=== PATIENT | female | born 1990 | race Caucasian/White ===

== ENCOUNTER 2017-03-21 10:50 | Emergency (ER) | payer BC ==
--- NOTE | 2017-03-21 11:22 | EDM.PDOC ---
ED HPI GENERAL MEDICAL PROBLEM - General Chief Complaint: Gastrointestinal Problem Stated Complaint: VOMITING/DIARRHEA Time Seen by Provider: 03/21/17 11:22 Source of Information: Reports: Patient - History of Present Illness INITIAL COMMENTS - FREE TEXT/NARRATIVE: Patient is here for evaluation for cough/myalgias and chills that started approximately 10 PM last night. She states that initially when she she woke up this morning she felt okay, so she's got up and moving around these returned. She is now also vomiting and having diarrhea. She has had several episodes of vomiting and diarrhea this morning. She states that she is not tolerating well water all the greatest and feels nauseated now. She feels she has a fever but hasn't checked. Patient did get her influenza vaccine prior to moving here from [place] approximately 4 months ago. She denies any chronic medical conditions, did have hypertension and anemia while . She is not on any medications daily. 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: none- has been vomiting Generalized Pain Score (Numeric/FACES): 6 - Related Data Allergies Allergy/AdvReac Type Severity Reaction Status Date / Time No Known Allergies Allergy Verified 03/21/17 11:10 Home Meds: Home Meds Ondansetron [Zofran ODT] 4 mg PO Q6H PRN #10 tab.dis 03/21/17 [Rx] Past Medical History - Past Surgical History Female Surgical History: Reports: Section, Other (See Below) Other Female Surgeries/Procedures: pre-eclampsia Social & Family History - Tobacco Use Smoking Status *Q: Former Smoker Used Tobacco, but Quit: Yes Month Tobacco Last Used: 4 month - Caffeine Use Caffeine Use: Reports: Coffee, Energy Drinks, Tea - Recreational Drug Use Recreational Drug Use: No ED ROS GENERAL - Review of Systems Review Of Systems: See Below Constitutional: Reports: Fever, Chills, Malaise, Weakness, Fatigue, Decreased Appetite HEENT: Denies: Eye Discharge, Sinus Problem Respiratory: Reports: Cough. Denies: Shortness of Breath, Wheezing, Sputum, Hemoptysis Cardiovascular: Reports: No Symptoms Endocrine: Reports: No Symptoms GI/Abdominal: Reports: Abdominal Pain (Diffuse, mild), Diarrhea, Decreased Appetite, Nausea, Vomiting. Denies: Black Stool, Bloody Stool : Reports: No Symptoms Musculoskeletal: Reports: Back Pain, Muscle Pain, Muscle Stiffness Skin: Reports: No Symptoms Neurological: Reports: No Symptoms Psychiatric: Reports: No Symptoms ED EXAM, GI/ABD - Physical Exam Exam: See Below Exam Limited By: No Limitations General Appearance: Alert, WD/WN, Other (Patient is ill in appearance) Ears: Normal External Exam, Normal Canal, Normal TMs Nose: Normal Inspection, Normal Mucosa, No Blood Throat/Mouth: Normal Inspection, Normal Oropharynx Head: Atraumatic, Normocephalic Neck: Normal Inspection, Supple, Non-Tender, Full Range of Motion Respiratory/Chest: No Respiratory Distress, Lungs Clear, Normal Breath Sounds, Chest Non-Tender Cardiovascular: Normal Peripheral Pulses, Regular Rate, Rhythm, No Murmur, No Rub GI/Abdominal Exam: Normal Bowel Sounds, Soft, Tender (Mild, diffuse) Neurological: Alert, Oriented Psychiatric: Normal Affect, Normal Mood Skin Exam: Warm, Dry, Intact Course - Vital Signs Last Recorded V/S: Last Vital Signs Temp 101.8 F H 03/21/17 11:04 Pulse 111 H 03/21/17 11:04 Resp 20 03/21/17 11:04 BP 113/76 03/21/17 11:04 Pulse Ox 96 03/21/17 11:04 - Orders/Labs/Meds Orders: Active Orders 24 hr Category Date Time Status UA W/MICROSCOPIC [URIN] Stat Lab 03/21/17 11:30 Uncollected Labs: Laboratory Tests 03/21/17 03/21/17 Range/Units 11:49 11:49 WBC 7.27 (3.98-10.04) K/mm3 RBC 4.49 (3.98-5.22) M/mm3 Hgb 12.7 (11.2-15.7) gm/L Hct 38.1 (34.1-44.9) % MCV 84.9 (79.4-94.8) fl MCH 28.3 (25.6-32.2) pg MCHC 33.3 (32.2-35.5) g/dl RDW Std Deviation 39.4 (36.4-46.3) fL Plt Count 236 (182-369) K/mm3 MPV 9.7 (9.4-12.3) fl Neutrophils % (Manual) 59 (40-60) % Band Neutrophils % 0 (0-10) % Lymphocytes % (Manual) 21 (20-40) % Atypical Lymphs % 0 % Monocytes % (Manual) 15 H (2-10) % Eosinophils % (Manual) 5 (0.7-5.8) % Basophils % (Manual) 0 L (0.1-1.2) Platelet Estimate Adequate RBC Morph Comment Normal Sodium 140 (136-145) mEq/L Potassium 4.2 (3.5-5.1) mEq/L Chloride 105 (98-107) mEq/L Carbon Dioxide 25 (21-32) mEq/L Anion Gap 14.2 (5-15) BUN 10 (7-18) mg/dL Creatinine 1.0 (0.55-1.02) mg/dL Est Cr Clr Drug Dosing 93.00 mL/min Estimated GFR (MDRD) > 60 (>60) mL/min BUN/Creatinine Ratio 10.0 L (14-18) Glucose 100 (74-106) mg/dL Calcium 9.2 (8.5-10.1) mg/dL Total Bilirubin 0.4 (0.2-1.0) mg/dL AST 19 (15-37) U/L ALT 26 (14-59) U/L Alkaline Phosphatase 78 (46-116) U/L C-Reactive Protein 2.0 H* (<1.0) mg/dL Total Protein 7.4 (6.4-8.2) g/dl Albumin 3.7 (3.4-5.0) g/dl Globulin 3.7 gm/dL Albumin/Globulin Ratio 1.0 (1-2) Lipase 72 L (73-393) U/L Meds: Medications Discontinued Medications Generic Name Dose Route Start Last Admin Trade Name Freq PRN Reason Stop Dose Admin Sodium Chloride 1,000 mls @ 999 mls/hr 03/21/17 11:31 03/21/17 11:50 Normal Saline IV 03/21/17 12:31 999 mls/hr ONETIME ONE Administration Ibuprofen 600 mg 03/21/17 11:32 03/21/17 11:55 Motrin PO 03/21/17 11:33 600 mg ONETIME ONE Administration Ondansetron HCl 4 mg 03/21/17 11:31 03/21/17 11:50 Zofran IVPUSH 03/21/17 11:32 4 mg ONETIME ONE Administration - Re-Assessments/Exams Free Text/Narrative Re-Assessment/Exam: WBC 7,270 with 59% and chills and no bands. CMP is unremarkable with a normal anion gap. CRP is 2.0. Influenza was negative, patient does have a clinical presentation of influenza. She would not consider Tamiflu anyway she did not tolerate it previously. Will discharge home recommended supportive care of rest, exercise and oral fluids as well as NSAIDs as needed for myalgias and fever. She is to follow up in clinic next week if not improved or return to the emergency room if needed. 03/21/17 13:05 Departure - Departure Time of Disposition: 13:01 Disposition: Home, Self-Care 01 Condition: Good Clinical Impression: Flu-like symptoms Nausea & vomiting Qualifiers: Vomiting Intractability: non-intractable - Discharge Information Prescriptions: Ondansetron [Zofran ODT] 4 mg PO Q6H PRN #10 tab.dis PRN Reason: Nausea Referrals: Daniel Perez PA-C [Primary Care Provider] - Forms: ED Department Discharge, ED Return to Work/School Form Additional Instructions: Rest, push oral fluids as much as possible. Clifford diet (no sugar/spice/dairy) until symptoms improved. Ibuprofen 600 mg 3-4 times daily. Zofran as needed for nausea. Follow-up in clinic with PCP if symptoms not improving or certainly return to ER if any worsening. You may return to work when yourr fever is gone for 24 hours without medication and your symptoms are starting to improve. - My Orders Last 24 Hours: My Active Orders 03/21/17 11:30 UA W/MICROSCOPIC [URIN] Stat - Assessment/Plan Last 24 Hours: My Active Orders 03/21/17 11:30 UA W/MICROSCOPIC [URIN] Stat
[2017-03-21] MEDS ORDERED: Ondansetron 4 MG/2 ML SDV IVPUSH ONE (11:31)
[2017-03-21] MEDS ORDERED: Sodium Chloride 0.9% 1,000 ML IV ONE (11:31)
[2017-03-21] MEDS ORDERED: Ibuprofen 600 MG Tab PO ONE (11:32)
== END 2017-03-21 13:23 | disposition home or self-care (01) ==
LOC: JD.ED 10:50
DX: R11.2 Nausea with vomiting, unspecified (principal); M79.1 Myalgia; R05 Cough; Z87.891 Personal history of nicotine dependence
CPT/HCPCS: 36415; 80053; 83690; 85025; 86140; 87804; 96361; 96374; 99284; A9270; J2405; J7040

== ENCOUNTER 2020-06-20 17:50 | Emergency (ER) | payer BC ==
[2020-06-20] MEDS ORDERED: Sodium Chloride 0.9% 10 ML Syringe FLUSH PRN (18:09)
--- NOTE | 2020-06-20 18:10 | EDM.PDOC ---
ED HPI GENERAL MEDICAL PROBLEM - General Chief Complaint: Fever Stated Complaint: COVID SX/FEVER/COUGH Time Seen by Provider: 06/20/20 18:05 Source of Information: Reports: Patient, RN Notes Reviewed History Limitations: Reports: No Limitations - History of Present Illness INITIAL COMMENTS - FREE TEXT/NARRATIVE: Patient is a 30-year-old female who presents to the ER for her multiple upper respiratory symptoms and fever. Patient states that she felt kind of under the weather this morning, and at around 12 PM, it seemed to worsen quite a bit. She notes that she had all over body aches, chills and a fever as high as 104 F at home. 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 She has been trying to drink [place] dustin and eat some crackers however nothing is staying down and she has vomited all this back up. She denies any chance of and states she is on her menses at this time. 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 Patient has had both Covid vaccines. She does have a dry cough, but is not complaining about being short of breath. Vitals at time of triage reveal a pulse of 110 bpm, temperature 102.4 F, respiratory rate of 14, blood pressure 146/83, O2 sats 96% on room air. - Related Data Allergies Allergy/AdvReac Type Severity Reaction Status Date / Time No Known Allergies Allergy Verified 08/21/18 10:47 Home Meds: Home Meds Escitalopram [Lexapro] 20 mg PO DAILY 08/21/18 [History] Ondansetron [Zofran ODT] 4 mg PO Q8H PRN #15 tab.dis 06/20/20 [Rx] Past Medical History [employer] History: Reports: - Past Surgical History Female Surgical History: Reports: Section, Other (See Below) Other Female Surgeries/Procedures: pre-eclampsia Social & Family History - Tobacco Use Tobacco Use Status *Q: Former Tobacco User Used Tobacco, but Quit: Yes Month/Year Tobacco Last Used: 02/2019 - Caffeine Use Caffeine Use: Reports: None - Recreational Drug Use Recreational Drug Use: No ED ROS ENT - Review of Systems Review Of Systems: Comprehensive ROS is negative, except as noted in HPI. ED EXAM, ENT - Physical Exam Exam: See Below Exam Limited By: No Limitations General Appearance: Alert, WD/WN, No Apparent Distress Mouth/Throat: Normal Inspection Head: Atraumatic, Normocephalic Respiratory/Chest: No Respiratory Distress, Lungs Clear, Normal Breath Sounds, No Accessory Muscle Use, Chest Non-Tender Cardiovascular: Normal Peripheral Pulses, Regular Rate, Rhythm, No Edema GI/Abdominal: Normal Bowel Sounds, Soft, Non-Tender, No Distention, No Mass Extremities: Normal Inspection, Normal Capillary Refill Neurological: Alert, Oriented, Normal Cognition, No Motor/Sensory Deficits Psychiatric: Normal Affect, Normal Mood Skin: Warm, Dry, Intact, Normal Color, No Rash Course - Vital Signs Last Recorded V/S: Last Vital Signs Temp 102.4 F H 06/20/20 18:02 Pulse 110 H 06/20/20 18:02 Resp 14 06/20/20 18:02 BP 146/83 H 06/20/20 18:02 Pulse Ox 96 06/20/20 18:02 - Orders/Labs/Meds Orders: Active Orders 24 hr Category Date Time Status Peripheral IV Care [RC] . DIRECTED Care 06/20/20 18:09 Ordered Chest 1V Frontal [CR] Stat Exams 06/20/20 18:08 Ordered Sodium Chloride 0.9% [Saline Flush] Med 06/20/20 18:09 Ordered 10 ml FLUSH ASDIRECTED PRN Peripheral IV Insertion Adult [OM.PC] Routine Oth 06/20/20 18:09 Ordered Medication Orders Sodium Chloride (Sodium Chloride 0.9% 10 Ml Syringe) 10 ml FLUSH ASDIRECTED PRN PRN Reason: Keep Vein Open Last Admin: 06/20/20 18:44 Dose: 10 ml Documented by: DESTINY Labs: Laboratory Tests 06/20/20 06/20/20 06/20/20 Range/Units 18:06 18:36 18:36 WBC 7.88 (3.98-10.04) K/mm3 RBC 4.62 (3.98-5.22) M/mm3 Hgb 13.4 (11.2-15.7) gm/dl Hct 40.6 (34.1-44.9) % MCV 87.9 (79.4-94.8) fl MCH 29.0 (25.6-32.2) pg MCHC 33.0 (32.2-35.5) g/dl RDW Std Deviation 40.5 (36.4-46.3) fL Plt Count 250 (182-369) K/mm3 MPV 9.5 (9.4-12.3) fl Neutrophils % (Manual) 91 H (40-60) % Band Neutrophils % 0 (0-10) % Lymphocytes % (Manual) 6 L (20-40) % Atypical Lymphs % 0 % Monocytes % (Manual) 3 (2-10) % Eosinophils % (Manual) 0 L (0.7-5.8) % Basophils % (Manual) 0 L (0.1-1.2) Platelet Estimate Adequate RBC Morph Comment Normal PT (9.7-12.0) SECONDS INR APTT (21.7-31.4) SECONDS D-Dimer, Quantitative (0.19-0.50) mg/L Sodium (136-145) mEq/L Potassium (3.5-5.1) mEq/L Chloride (98-107) mEq/L Carbon Dioxide (21-32) mEq/L Anion Gap (5-15) BUN (7-18) mg/dL Creatinine (0.55-1.02) mg/dL Est Cr Clr Drug Dosing mL/min Estimated GFR (MDRD) (>60) mL/min BUN/Creatinine Ratio (14-18) Glucose (74-106) mg/dL Lactic Acid (0.4-2.0) mmol/L Calcium (8.5-10.1) mg/dL Magnesium (1.8-2.4) mg/dl Total Bilirubin (0.2-1.0) mg/dL AST (15-37) U/L ALT (14-59) U/L Alkaline Phosphatase (46-116) U/L Troponin I (0.00-0.056) ng/mL C-Reactive Protein 1.4 H* (<1.0) mg/dL Total Protein (6.4-8.2) g/dl Albumin (3.4-5.0) g/dl Globulin gm/dL Albumin/Globulin Ratio (1-2) Influenza Type A RNA Negative (NEGATIVE) Influenza Type B RNA Negative (NEGATIVE) SARS-CoV-2 RNA ([facility]) Negative (NEGATIVE) 06/20/20 06/20/20 06/20/20 Range/Units 18:36 18:36 18:36 WBC (3.98-10.04) K/mm3 RBC (3.98-5.22) M/mm3 Hgb (11.2-15.7) gm/dl Hct (34.1-44.9) % MCV (79.4-94.8) fl MCH (25.6-32.2) pg MCHC (32.2-35.5) g/dl RDW Std Deviation (36.4-46.3) fL Plt Count (182-369) K/mm3 MPV (9.4-12.3) fl Neutrophils % (Manual) (40-60) % Band Neutrophils % (0-10) % Lymphocytes % (Manual) (20-40) % Atypical Lymphs % % Monocytes % (Manual) (2-10) % Eosinophils % (Manual) (0.7-5.8) % Basophils % (Manual) (0.1-1.2) Platelet Estimate RBC Morph Comment PT 10.9 (9.7-12.0) SECONDS INR 1.02 APTT 28.8 (21.7-31.4) SECONDS D-Dimer, Quantitative 0.71 H (0.19-0.50) mg/L Sodium 140 (136-145) mEq/L Potassium 4.6 (3.5-5.1) mEq/L Chloride 104 (98-107) mEq/L Carbon Dioxide 27 (21-32) mEq/L Anion Gap 13.6 (5-15) BUN 15 (7-18) mg/dL Creatinine 1.0 (0.55-1.02) mg/dL Est Cr Clr Drug Dosing 90.57 mL/min Estimated GFR (MDRD) > 60 (>60) mL/min BUN/Creatinine Ratio 15.0 (14-18) Glucose 118 H (74-106) mg/dL Lactic Acid 1.5 (0.4-2.0) mmol/L Calcium 8.8 (8.5-10.1) mg/dL Magnesium 1.7 L (1.8-2.4) mg/dl Total Bilirubin 0.7 (0.2-1.0) mg/dL AST 26 (15-37) U/L ALT 36 (14-59) U/L Alkaline Phosphatase 71 (46-116) U/L Troponin I < 0.017 (0.00-0.056) ng/mL C-Reactive Protein (<1.0) mg/dL Total Protein 7.5 (6.4-8.2) g/dl Albumin 3.9 (3.4-5.0) g/dl Globulin 3.6 gm/dL Albumin/Globulin Ratio 1.1 (1-2) Influenza Type A RNA (NEGATIVE) Influenza Type B RNA (NEGATIVE) SARS-CoV-2 RNA ([facility]) (NEGATIVE) Meds: Medications Generic Name Dose Route Start Last Admin Trade Name Freddyq PRN Reason Stop Dose Admin Sodium Chloride 10 ml 06/20/20 18:09 06/20/20 18:44 Sodium Chloride 0.9% 10 Ml Syringe FLUSH 10 ml ASDIRECTED PRN Administration Keep Vein Open Discontinued Medications Generic Name Dose Route Start Last Admin Trade Name Mahendra PRN Reason Stop Dose Admin Ketorolac Tromethamine 30 mg 06/20/20 18:22 06/20/20 18:43 Ketorolac 30 Mg/Ml Sdv IVPUSH 06/20/20 18:23 30 mg ONETIME ONE Administration Ondansetron HCl 4 mg 06/20/20 18:22 06/20/20 18:43 Ondansetron 4 Mg/2 Ml Sdv IVPUSH 06/20/20 18:23 4 mg ONETIME ONE Administration - Re-Assessments/Exams Free Text/Narrative Re-Assessment/Exam: 06/20/20 18:34 Patient presents to the ER for her fever, body aches/chills, nausea/vomiting. We will go ahead and get IV established, get some baseline labs, we will test for COVID-19 at this time however we will get a chest x-ray, give her some Zofran and some IV Toradol for pain management. 06/20/20 19:43 The patient's labs have returned, CBC is within normal limits white cell count of 7.88, D-dimer is elevated 0.71, CMP essentially unremarkable CRP is elevated at 1.4, troponin undetectably low, patient's Covid/flu screen were both negative for today's purposes. I did go over the patient's labs with her and offered to do a CTA of the chest due to the elevated D-dimer, but the patient would like to wait, O2 sats are still acceptable at 96-97 on room air. Patient states she is feeling better with the Zofran, will go ahead and see if she can tolerate oral fluids and get her discharged home with general recommendations. Departure - Departure Time of Disposition: 19:46 Disposition: Home, Self-Care 01 Condition: Good Clinical Impression: Viral URI with cough Fever Qualifiers: Fever type: due to other condition Qualified Code(s): R50.81 - Fever presenting with conditions classified elsewhere - Discharge Information *PRESCRIPTION DRUG MONITORING PROGRAM REVIEWED*: No *COPY OF PRESCRIPTION DRUG MONITORING REPORT IN PATIENT SAMIR: No Prescriptions: Ondansetron [Zofran ODT] 4 mg PO Q8H PRN #15 tab.dis PRN Reason: Nausea Instructions: Viral Respiratory Infection, [id number], Fever, Adult, [id number] Referrals: Emily Chiu PA-C [Primary Care Provider] - Forms: ED Department Discharge, ED Return to Work/School Form Additional Instructions: You have been evaluated in the ED today for your cold like symptoms. This is likely a viral illness in etiology. Your chest x-ray showed no sign of pneumonia. Laboratory evaluation was also essentially unremarkable however your D-dimer was slightly elevated, this is a measure of clotting material in your blood, this can be elevated even if you bump your arm and develop a bruise. Likelihood of having a pulmonary embolus due to the elevated D-dimer was low, and a CT of your chest was not done at today's visit to rule out pulmonary embolus. Please increase your fluid intake. Get plenty of rest as well. You should feel better in a few days. As with any illness, please try to limit your exposure to others to help mitigate the spread of germs. Please also remember to wash your hands after you cough/sneeze. Please try to limit touching your face, and then touching other surfaces. Recommend that you take some [id number] nasal decongestants, cough/cold remedies to combat this. You may take 500mg Tylenol (acetaminophen) or 600mg Advil/Motrin (ibuprofen) every 6 hours as needed for further pain/fever relief. Do not exceed 4000 mg Tylenol or 3200 mg ibuprofen in a 24-hour time span. If you have high blood pressure, medications like Coricidin would be adequate to use. You may use the Zofran dissolvable under your tongue every 8 hours for ongoing management. This medication was electronically sent to the [facility] located near [facility]. If your symptoms are not better in one week's time recommend that you follow up in a clinic or your primary care provider. Our [facility] clinic number is [phone], the [facility] is [phone]. Any family practice provider would be able to provide you with the services. Please return to the ED if your symptoms change or worsen. Sepsis Event Note (ED) - Evaluation Sepsis Screening Result: Possible Sepsis Risk - Focused Exam Vital Signs: Vital Signs Temp Pulse Resp BP Pulse Ox 06/20/20 18:02 102.4 F H 110 H 14 146/83 H 96 - My Orders Last 24 Hours: My Active Orders 06/20/20 18:08 Chest 1V Frontal [CR] Stat 06/20/20 18:09 Peripheral IV Care [RC] . DIRECTED Sodium Chloride 0.9% [Saline Flush] 10 ml FLUSH ASDIRECTED PRN Peripheral IV Insertion Adult [OM.PC] Routine - Assessment/Plan Last 24 Hours: My Active Orders 06/20/20 18:08 Chest 1V Frontal [CR] Stat 06/20/20 18:09 Peripheral IV Care [RC] . DIRECTED Sodium Chloride 0.9% [Saline Flush] 10 ml FLUSH ASDIRECTED PRN Peripheral IV Insertion Adult [OM.PC] Routine
[2020-06-20] MEDS ORDERED: Ondansetron 4 MG/2 ML SDV IVPUSH ONE (18:22)
[2020-06-20] MEDS ORDERED: Ketorolac 30 MG/ML SDV IVPUSH ONE (18:22)
[2020-06-20 19:16] LABS: CORONAVIRUS COVID-19 NAA NEGATIVE (NEGATIVE)
--- NOTE | 2020-06-21 08:29 | CR ---
Chest: Portable view of the chest was obtained. Comparison: Prior chest x-ray of 10/19/19. Heart size and mediastinum are normal. Lungs are clear with no acute parenchymal change. Bony structures show nothing acute. Impression: 1. Nothing acute is seen on portable chest x-ray. 2. No change from previous study is seen. Diagnostic code #1
== END 2020-06-20 20:15 | disposition home or self-care (01) ==
LOC: JD.ED 17:50
DX: J06.9 Acute upper respiratory infection, unspecified (principal); Z87.891 Personal history of nicotine dependence; Z20.822 Contact with and (suspected) exposure to COVID-19
CPT/HCPCS: 0240U; 36415; 71045; 80053; 83605; 83735; 84484; 85007; 85027; 85379; 85610; 85730; 86140; 96374; 96375; 99283; J1885; J2405

== ENCOUNTER 2021-03-05 07:36 | Day surgery (SDC) | payer BC, OTHER ==
[~2021-03-05 07:36] MED LIST: Lactated Ringers 1,000 ML IV SCH; Lidocaine 1%/Sod Bicarbonate in NS 8.4% 1 ML Syringe IDERM PRN; Sodium Chloride 0.9% 10 ML Syringe FLUSH SCH
[2021-03-05] MEDS ORDERED: Lidocaine 1% 4 ML ONE (07:48)
[2021-03-05] MEDS ORDERED: Propofol 200 MG/20 ML SDV ONE ×2 (07:49→07:50)
== END 2021-03-05 09:20 | disposition home or self-care (01) ==
LOC: JD.SDS 07:36
PROVIDERS: ATTEND Surgery
DX: K20.90 Esophagitis, unspecified without bleeding (principal); K22.70 Barrett's esophagus without dysplasia; R13.10 Dysphagia, unspecified; K44.9 Diaphragmatic hernia without obstruction or gangrene; F41.9 Anxiety disorder, unspecified; F32.A Depression, unspecified; K21.9 Gastro-esophageal reflux disease without esophagitis; E55.9 Vitamin D deficiency, unspecified; Z79.899 Other long term (current) drug therapy; Z98.890 Other specified postprocedural states; Z87.891 Personal history of nicotine dependence
CPT/HCPCS: 43239; J2704; J7120; 00731